=== PATIENT | female | born 1985 | race Caucasian/White ===

== ENCOUNTER 2017-05-09 11:46 | Inpatient (IN) | payer MEDICARE, OTHER ==
[~2017-05-09] VITALS: Ht 172.7 cm; Wt 133.4 kg
[2017-05-09 13:54] LABS: RED BLOOD COUNT 4.74 M/UL (4.00-5.10); WHITE BLOOD COUNT 19.8 K/UL (4.5-11.0)
[2017-05-09 14:13] LABS: BUN/CREATININE RATIO 12 (0-10)
[2017-05-10 04:23] LABS: HEMOGLOBIN 13.1 gm/dl (12.3-15.3); RED BLOOD COUNT 4.51 M/UL (4.00-5.10); WHITE BLOOD COUNT 14.5 K/UL (4.5-11.0)
[2017-05-10 04:35] LABS: BUN/CREATININE RATIO 12 (0-10)
[2017-05-11 05:17] LABS: HEMOGLOBIN 12.5 gm/dl (12.3-15.3); RED BLOOD COUNT 4.26 M/UL (4.00-5.10)
[2017-05-11 05:40] LABS: BUN/CREATININE RATIO 14 (0-10)
[2017-05-12 04:53] LABS: BUN/CREATININE RATIO 14 (0-10); HEMOGLOBIN 11.8 gm/dl (12.3-15.3); RED BLOOD COUNT 4.07 M/UL (4.00-5.10); WHITE BLOOD COUNT 15.9 K/UL (4.5-11.0)
[2017-05-13 03:41] LABS: HEMOGLOBIN 12.8 gm/dl (12.3-15.3); RED BLOOD COUNT 4.38 M/UL (4.00-5.10); WHITE BLOOD COUNT 16.5 K/UL (4.5-11.0)
[2017-05-13 04:01] LABS: BUN/CREATININE RATIO 16 (0-10)
[2017-05-14 03:45] LABS: HEMOGLOBIN 12.7 gm/dl (12.3-15.3); RED BLOOD COUNT 4.33 M/UL (4.00-5.10)
[2017-05-14 04:05] LABS: BUN/CREATININE RATIO 20 (0-10)
[2017-05-15 04:32] LABS: HEMOGLOBIN 12.4 gm/dl (12.3-15.3); RED BLOOD COUNT 4.32 M/UL (4.00-5.10); WHITE BLOOD COUNT 19.1 K/UL (4.5-11.0)
[2017-05-15 04:51] LABS: BUN/CREATININE RATIO 18 (0-10)
[2017-05-15] MEDS ORDERED: PERCOCET 10-321 EACH PO (09:16)
[2017-05-15] MEDS ORDERED: OXYCONTIN20 MG PO (09:16)
[2017-05-15] MEDS ORDERED: ANCEF 1 GM IV AD1 GM IV (09:17)
== END 2017-05-15 15:29 | disposition home or self-care (01) | DRG 854 ==
LOC: ER1 11:46 → MED SURG 4 15:45 → ZEROF 15:45 → MED SURG 4 16:48
PROVIDERS: Emergency Medicine; Nurse Practitioner Family; Orthopaedic Surgery; ADMIT Internal Medicine
PROC: 0KBS0ZZ Excision of Right Lower Leg Muscle, Open Approach (ICD-10-PCS; principal; 2017-05-10 11:15)
PROC: 0S9C3ZZ Drainage of Right Knee Joint, Percutaneous Approach (ICD-10-PCS; 2017-05-10 11:15)
DX: A41.9 Sepsis, unspecified organism (principal); M00.9 Pyogenic arthritis, unspecified; L02.415 Cutaneous abscess of right lower limb; Z68.42 Body mass index [BMI] 45.0-49.9, adult; T79.A21A Traumatic compartment syndrome of right lower extremity, initial encounter; X58.XXXA Exposure to other specified factors, initial encounter; E66.01 Morbid (severe) obesity due to excess calories; M62.838 Other muscle spasm; F17.210 Nicotine dependence, cigarettes, uncomplicated; B95.61 Methicillin susceptible Staphylococcus aureus infection as the cause of diseases classified elsewhere; Z88.5 Allergy status to narcotic agent; Z88.2 Allergy status to sulfonamides; Z88.8 Allergy status to other drugs, medicaments and biological substances
CPT/HCPCS: 36415; 73564; 73700; 80048; 80053; 80202; 82550; 84550; 84703; 85025; 85027; 86140; 87040; 87070; 87077; 87186; 87205; 89051; 89060; 93971; 96374; 97110; 97116; 97535; 99285; J0690; J1100; J1644; J2250; J2270; J2405; J2550; J2710; J2765; J3010; J3370; J7070; J7120

== ENCOUNTER → 2017-05-16 | Outpatient (CLI) | payer MEDICARE, OTHER ==
[~2017-05-16] VITALS: Ht 172.7 cm; Wt 133.4 kg
[~2017-05-16] MED LIST: ANCEF 1 GM IV AD1 GM IV; OXYCONTIN20 MG PO; PERCOCET 10-321 EACH PO
== END ==
LOC: OPSV 09:00
DX: L03.115 Cellulitis of right lower limb (principal)
CPT/HCPCS: 96365; J0696

== ENCOUNTER → 2017-05-17 | Outpatient (CLI) | payer MEDICARE, OTHER ==
[~2017-05-17] VITALS: Ht 172.7 cm; Wt 133.4 kg
== END ==
LOC: OPSV 16:00
DX: M00.861 Arthritis due to other bacteria, right knee (principal)
CPT/HCPCS: 96365; J0696

== ENCOUNTER → 2017-05-18 | Outpatient (CLI) | payer MEDICARE, OTHER | LOC: OPSV 08:17 | DX: M00.861 Arthritis due to other bacteria, right knee (principal) | CPT/HCPCS: 96365; J0696 ==

== ENCOUNTER → 2017-05-19 | Outpatient (CLI) | payer MEDICARE, OTHER ==
[~2017-05-19] VITALS: Ht 172.7 cm; Wt 133.4 kg
== END ==
LOC: OPSV 08:00
DX: M00.861 Arthritis due to other bacteria, right knee (principal)
CPT/HCPCS: 96365; J0696

== ENCOUNTER → 2017-05-20 | Outpatient (CLI) | payer MEDICARE, OTHER ==
[~2017-05-20] VITALS: Ht 172.7 cm; Wt 133.4 kg
== END ==
LOC: OPSV 15:27
DX: M00.861 Arthritis due to other bacteria, right knee (principal)
CPT/HCPCS: 96365; J0696

== ENCOUNTER → 2017-05-21 | Outpatient (CLI) | payer MEDICARE, OTHER ==
[~2017-05-21] VITALS: Ht 172.7 cm; Wt 133.4 kg
== END ==
LOC: OPSV 16:00
DX: L03.115 Cellulitis of right lower limb (principal)
CPT/HCPCS: 96365; J0696

== ENCOUNTER → 2017-05-22 | Outpatient (CLI) | payer MEDICARE, OTHER ==
[~2017-05-22] VITALS: Ht 172.7 cm; Wt 133.4 kg
== END ==
LOC: OPSV 15:53
DX: L03.115 Cellulitis of right lower limb (principal)
CPT/HCPCS: 96365; J0696

== ENCOUNTER → 2017-05-24 | Outpatient (CLI) | payer MEDICARE, OTHER ==
[~2017-05-24] VITALS: Ht 172.7 cm; Wt 133.4 kg
== END ==
LOC: OPSV 15:11
DX: L03.115 Cellulitis of right lower limb (principal)
CPT/HCPCS: 96365; J0696

== ENCOUNTER → 2017-05-25 | Outpatient (CLI) | payer MEDICARE, OTHER ==
[~2017-05-25] VITALS: Ht 172.7 cm; Wt 133.4 kg
== END ==
LOC: OPSV 08:46
DX: M00.861 Arthritis due to other bacteria, right knee (principal)
CPT/HCPCS: 96365; J0696

== ENCOUNTER → 2017-05-27 | Outpatient (CLI) | payer MEDICARE, OTHER ==
[~2017-05-27] VITALS: Ht 172.7 cm; Wt 133.4 kg
== END ==
LOC: OPSV 15:57
DX: M00.861 Arthritis due to other bacteria, right knee (principal)
CPT/HCPCS: 96365; J0696

== ENCOUNTER → 2017-05-28 | Outpatient (CLI) | payer MEDICARE, OTHER ==
[~2017-05-28] VITALS: Ht 172.7 cm; Wt 133.4 kg
== END ==
LOC: OPSV 16:00
DX: M00.161 Pneumococcal arthritis, right knee (principal)
CPT/HCPCS: 96365; J0696

== ENCOUNTER → 2017-05-29 | Outpatient (CLI) | payer MEDICARE, OTHER ==
[~2017-05-29] VITALS: Ht 172.7 cm; Wt 133.4 kg
== END ==
LOC: OPSV 14:35
DX: L03.116 Cellulitis of left lower limb (principal)
CPT/HCPCS: 96365; J0696

== ENCOUNTER → 2022-07-26 | Outpatient (CLI) | payer MEDICARE, OTHER ==
[~2022-07-26] MED LIST changes: +MEDROXYPROGESTE10 MG PO; +MELOXICAM7.5 MG PO; +METFORMIN HCL500 M2 PO; +OZEMPIC; +TIZANIDINE HCL2 M1 PO
[2022-07-26 13:27] LABS: HEMOGLOBIN 14.2 gm/dl (12.3-15.3); RED BLOOD COUNT 4.85 M/UL (4.00-5.10); WHITE BLOOD COUNT 15.7 K/UL (4.5-11.0)
[2022-07-26 13:55] LABS: BUN/CREATININE RATIO 9 (0-10)
== END ==
LOC: OPSV2 07-23 12:30
PROVIDERS: Obstetrics & Gynecology
DX: Z01.812 Encounter for preprocedural laboratory examination (principal); N97.0 Female infertility associated with anovulation; E11.9 Type 2 diabetes mellitus without complications
CPT/HCPCS: 36415; 80048; 81001; 85025